=== PATIENT | female | born 1955 | race Caucasian/White ===

== ENCOUNTER → 2021-11-17 | Outpatient (CLI) | payer OTHER, BC | LOC: RAD 14:46 | DX: M54.50 Low back pain, unspecified (principal); M54.32 Sciatica, left side; M47.816 Spondylosis without myelopathy or radiculopathy, lumbar region; M85.9 Disorder of bone density and structure, unspecified | CPT/HCPCS: 72100 ==

== ENCOUNTER → 2021-11-20 | Outpatient (CLI) | payer OTHER, BC | LOC: EXRD 09:15 | DX: M81.0 Age-related osteoporosis without current pathological fracture (principal); M85.89 Other specified disorders of bone density and structure, multiple sites | CPT/HCPCS: 77080 ==